=== PATIENT | female | born 1970 | race African-American/Black ===

== ENCOUNTER → 2021-01-11 16:51 | Outpatient (CLI) | payer BC, SELFPAY ==
--- NOTE | ~2021-01-11 | MM_ITS ---
EXAMINATION: MM screening adelaida BI w socorro HISTORY: Screening mammogram TECHNIQUE: Craniocaudal and mediolateral oblique 3-D tomosynthesis images were obtained and synthetic 2-D images were generated. CAD analysis was submitted and interpreted. COMPARISON: No prior mammogram is available for comparison at this institution. BREAST PARENCHYMAL COMPOSITION: The breasts are heterogeneously dense, which may obscure small masses . FINDINGS: RIGHT BREAST: There is an asymmetry in the anterior third of the outer breast 5 cm from the nipple on the craniocaudal view. LEFT BREAST: There is no evidence of suspicious mass, calcification, or architectural distortion to s uggest malignancy. IMPRESSION: 1. Right breast asymmetry which may represent the patient's baseline however no comparison is current ly available. 2. Comparison with prior mammograms is necessary. BI-RADS Category 0: Incomplete: Needs comparison with prior mammograms. Reviewed, dictated and finalized at location A. IMPRESSION: 1. Right breast asymmetry which may represent the patient's baseline however no comparison is currently available. 2. Comparison with prior mammograms is necessary. BI-RADS Category 0: Incomplete: Needs comparison with prior mammograms.
== END ==
PROVIDERS: PCP Internal Medicine; Visit Provider Internal Medicine
DX: Z12.31 Encounter for screening mammogram for malignant neoplasm of breast (principal); R92.8 Other abnormal and inconclusive findings on diagnostic imaging of breast
CPT/HCPCS: 77063; 77067

== ENCOUNTER 2022-03-25 15:04 | Outpatient (CLI) | payer BC, SELFPAY ==
--- NOTE | 2022-03-27 17:24 | P.PCNHOL_ITS ---
Holter/Event Monitor Holter/Event Monitor Date of procedure: 03/27/22 Holter/Event Procedure: 24 Hr Holter Monitor Diagnosis: Irregular heartbeat, bradycardia Indications: 52-year-old female with irregular heart beat and bradycardia Image/Tracing Quality: Good Finding: The patient was monitored for 24 hours. The underlying rhythm was sinus with a minimum heart rate of 51 beats per minute, average heart rate of 86 beats per minute and a maximum heart rate of 125 beats per minute. Frequent PVCs were seen with a PVC burden of 15.1%. There were 2 couplets but no sustained ventricular tachycardia. There were episodes of bigeminy and trigeminy. There were no APCs. There was no atrial fibrillation, pauses, or heart block. No diary was submitted. Conclusion: Holter monitor is remarkable for frequent PVCs with a 15% burden, and with periods of ventricular bigeminy and trigeminy.
== END 2022-03-25 15:05 | disposition home or self-care (01) ==
PROVIDERS: PCP Internal Medicine
DX: R00.1 Bradycardia, unspecified (principal)
CPT/HCPCS: 93225; 93226

== ENCOUNTER → 2022-04-08 16:46 | Outpatient (CLI) | payer BC, SELFPAY ==
--- NOTE | ~2022-04-08 | MM_ITS ---
EXAMINATION: MM screening adelaida BI w socorro HISTORY: Screening mammogram TECHNIQUE: Craniocaudal and mediolateral oblique 3-D tomosynthesis images were obtained and synthetic 2-D images were generated. CAD analysis was submitted and interpreted. COMPARISON: 01/11/2021, 02/09/2018, 04/28/2016 BREAST PARENCHYMAL COMPOSITION: The breasts are heterogeneously dense, which may obscure small masses . FINDINGS: RIGHT BREAST: There is a possible mass in the anterior/middle third upper breast. LEFT BREAST: No suspicious mass, calcification, or architectural distortion are identified to suggest malignancy. There has been no suspicious interval change. IMPRESSION: 1. Possible right breast mass 2. Additional mammographic views and possible breast ultrasound are recommended. BI-RADS Category 0: Incomplete: Needs additional imaging evaluation. Reviewed, dictated and finalized at location A. IMPRESSION: 1. Possible right breast mass 2. Additional mammographic views and possible breast ultrasound are recommended . BI-RADS Category 0: Incomplete: Needs additional imaging evaluation.
== END ==
PROVIDERS: PCP Internal Medicine; Visit Provider Internal Medicine
DX: Z12.31 Encounter for screening mammogram for malignant neoplasm of breast (principal); R92.8 Other abnormal and inconclusive findings on diagnostic imaging of breast
CPT/HCPCS: 77063; 77067

== ENCOUNTER 2025-02-06 13:16 | Emergency (ER) | payer BC, SELFPAY ==
[2025-02-06] VITALS (9 sets, daily range): BP systolic 139–199; BP diastolic 75–99; PULSE 80–90; RESP 11–16; TEMP 36.8; O2SAT 99–100
--- NOTE | ~2025-02-06 | XR_ITS ---
EXAMINATION: XR chest 2V 02/06/2025 14:00 INDICATION: Syncope PROCEDURE: 2 view chest COMPARISON: No prior studies for comparison. FINDINGS: The lungs are clear. The cardiomediastinal silhouette is within normal limits. There are no pleural effusions. There is no pneumothorax suspected. IMPRESSION: 1: NO ACUTE CARDIOPULMONARY DISEASE. Reviewed, dictated and finalized at location A.
--- NOTE | ~2025-02-06 | CT_ITS ---
EXAMINATION: CT facial bones wo con DATE: 02/06/2025 13:53 INDICATION: Syncope TECHNIQUE: Computed tomography (CT) of the facial bones was performed without intravenous contrast. T he dose-length product was 398.08 mGy-cm. Automated exposure control and iterative reconstruction ishan hnique were employed. COMPARISON: None FINDINGS: No acute maxillofacial fracture. Paranasal sinuses and mastoids are pneumatized. Temporal m andibular joints symmetric. No maxillary fracture. Rightward nasal septal deviation. IMPRESSION: 1. No acute abnormality of the facial bones. Reviewed, dictated and finalized at location A.
--- NOTE | ~2025-02-06 | CT_ITS ---
EXAMINATION: CT BRAIN W/O DATE: 02/06/2025 13:53 INDICATION: Syncope. Headache. TECHNIQUE: Computed tomography (CT) of the head was performed without intravenous contrast. The dose- length product was 605.33 mGy-cm. Automated exposure control and iterative reconstruction technique were employed. COMPARISON: No prior studies for comparison. FINDINGS: Normal brain parenchymal volume for age. Normal dawkins-white differentiation. No acute intrac ranial hemorrhage, infarction, mass or mass effect. There are chronic bilateral cerebellar infarction s. No ventriculomegaly or midline shift. Midline sagittal images demonstrate a normal corpus callosum, c raniovertebral junction and sella turcica. Basilar cisterns are patent. Paranasal sinuses and mastoids are pneumatized. No depressed skull fractures. IMPRESSION: 1. No acute intracranial abnormality. 2: Chronic bilateral cerebellar infarctions. Reviewed, dictated and finalized at location A.
--- OUTSIDE RECORDS SUMMARY | 2025-02-06 13:26 | XMS_ITS | Encounter Summary ---
Author Organization [facility] Address [address] [place] [address] Care Team Providers Care Fixed Wing Pilot Name Role Phone Chyna Moody MD Primary Care Provider [phone] Laura Ramirez Primary Care Provider [phone] Encounter Details Date Type Department Care Team (Latest Contact Info) Description 05/25/2021 Patron Technology Message Enc [facility] Medical Group Multispecialty Care - [place] [address] [address] [place], [place] [id number] Chyna Moody MD [address] [place] [address] [address] [place] [address] Due for DM follow up Social History Tobacco Use Types Packs/Day Years Used Date Smoking Tobacco: Never Smokeless Tobacco: Never Comments:counseled by Dr Beth pastor Alcohol Use Standard Drinks/Week Comments Yes 0 (1 standard drink = 0.6 oz pur e alcohol) rarely PHQ-2 Answer Date Recorded PHQ-2 Score - If the patient scores above 3, please move on to questions 3-9 0 05/24/2021 Comments No Sex and Gender Information Value Date Recorded Sex Assigned at Female 08/10/2024 4:51 PM SUPERVISOR MODERN LANGUAGES Legal Sex Female 4:08 PM CDT Gender Identity Not on file Sexual Orientation Not on file COVID-19 Exposure Response Date Recorded In the last month, have you been in contact with someone who was confirmed or suspected to have Coronavirus / COVID-19? No / Unsure 05/24/2021 4:54 AM SUPERVISOR MODERN [employer]ANGUAGES documented as of this encounter Plan of Treatment Upcoming Encounters Date Type Department Care Team (Late st Contact Info) Description 04/05/2025 10:30 AM CDT Telephone [facility] [place] [address] [place] [address] Aileen Curry PA [address] [facility] [address] [place] [address] 04/20/2025 3:[address] [facility] Non Invasive Cardiology ONE [facility] [address] Aileen Curry PA [address] [facility] [address] [place] [address] 05/04/2025 3:00 PM CDT Office Visit [facility] [address] [place] [address] Olegario Fowler MD Three [facility]. [facility] [address] [place] [address] Aileen Curry PA [address] [facility] [address] [place] [address] documented as of this encounter Visit Diagnoses Not on filedocumented in this encounter Additional Health Concerns Assessment Noted Time PHQ-9 Depression Total Score: 0 05/24/20 3:03 PM SUPERVISOR [employer]ANGU[employer] documented as of this encounter Care Teams Fixed Wing Pilot Relationship Specialty Start Date End Date Chyna Moody MD [address] [address] PCP - General INTERNAL MEDICINE 12/24/20 04/08/22 Laura Ramirez FNP [address] [place] [address] PCP - General NURSE PRACTITIONER 04/09/22 documented as of this encounter
--- OUTSIDE RECORDS SUMMARY | 2025-02-06 13:26 | XMS_ITS | Clinical Summary ---
Author Organization [facility] Address [address] [place] [address] Care Team Providers Care Nurse Name Role Phone Laura Diallo KAYLIE Primary Care Provider [phone] Allergies No known active allergies Medications amLODIPine (NORVASC) 2.5 MG tablet Take 1 tablet (2.5 mg total) by mouth daily. 10/04/2023 Active estradiol (ESTRACE) 1 MG tablet Take 1 tablet (1 mg total) by mouth daily. 04/04/2024 Active Active Problems Problem Noted Date Diagnosed Date Holter monitor, abnormal 04/23/2022 Hypertension associated with type 2 diabetes mellitus ([facility]) 12/24/2021 Overview (12/24/2021): On Losartan and stable. Hyperlipidemia associated wi th type 2 diabetes mellitus ([facility]) 06/21/2021 Overview (12/24/2021): On 40 mg daily of atorvastatin and tolerating without any side effects. Aim for LDL less than 100. Diabetes mellitus, type 2 ([facility]) 08/2017 Overview (12/24/2021): Currently controlled at 6.5% Farxiga and metformin. Vitamin D deficiency 03/29/2015 Resolved Problems Problem Noted Date Diagnosed Date Resolved Date Screen for colon cancer 05/28/202112/05 Overview (05/28/2021): Added automatically from request for surgery [id number] Family history of malignant neoplasm of colon 05/28/20 21 06/21/2021 Overview (05/28/2021): Added automatically from request for surgery [id number] Restless sleeper 12/24/2017 01/21/2021 Snores 12/24/2017 01/21/2021 Hypertension 09/26/2015 12/24/2021 Acid reflux 03/29/2015 01/21/2021 Hyperlipidemia 03/29/2015 06/21/2021 Encounter for preventive health examination 03/10/2013 12/31/2020 Family History Medical History Relation Comments Diabetes Brother Hypertension Brother Colon Cancer Father recently diagnos ed Diabetes Father Hypertension Father No Known Problems Maternal Aunt Dementia Maternal Grandmother lewy body d ementia at 92 Hypertension Mother Breast Cancer Paternal Aunt Diabetes Paternal Grandmother Hypertension Paternal Grandmother Relation Status Comments Brother Alive Father Alive Maternal Aunt Maternal Grandfather Maternal Grandmother Mother Alive Paternal Aunt Paternal Grandfather Paternal Grandmother Social History Tobacco Use Types Packs/Day Years Used Date Smoking Tobacco: Never Smokeless Tobacco: Never Tobacco Cessation:Counseling Given: Not Answered Comments:counseled by Dr Moody Alcohol Use Standard Drinks/Week Comments Not Currently 0 (1 standard drink = 0.6 oz pur e alcohol) rarely PHQ-2 Answer Date Recorded PHQ-2 Score - If the patient scores above 3, please move on to questions 3-9 0 05/24/2021 Comments No Sex and Gender Information Value Date Recorded Sex Assigned at Female 08/10/2024 4:51 PM DEPORTATION OFFICER Legal Sex Female 4:08 PM CDT Gender Identity Not on file Sexual Orientation Not on file Last Filed Vital Signs Vital Sign Reading Time Taken Comments Blood Pressure 142/98 04/28/2024 3:03 PM CDT Pulse 82 04/28/2024 3:03 PM CDT Temperature 36.6 C (97.8 F) 12/24/2021 1:59 PM CDT Respiratory Rate 18 12/24/2021 1:59 PM CDT Oxygen Saturation 98% 04/28/2024 3:03 PM CDT Inhaled Oxygen Concentration - - Weight 83.2 kg (183 lb 6.4 oz) 04/28/2024 3:03 P M CDT Height 157.5 cm (5' 2) 04/28/2024 3:03 PM CDT Body Mass Index 33.54 04/28/2024 3:03 PM CDT Plan of Treatment Upcoming Encounters Date Type Department Care Team (Late st Contact Info) Description 04/05/2025 10:30 AM CDT Telephone [facility], [facility] [address] [place] [address] Aileen Curry PA [address] [facility] [address] [place] [address] 04/20/2025 3:30 PM CDT Appointment [facility] Non Invasive Cardiology [place] [address] Aileen Curry PA 3 [facility] [address] [place] [address] 05/04/2025 3:00 PM CDT Office Visit [facility] THREE [facility], [facility] [address] [place] [address] Olegario Fowler MD Three [facility]. [facility] [address] [place] [address] Aileen Curry PA [address] [facility] [address] [place], [place] [address] Health Maintenance Due Date Last Done Comments Kidney Health Evaluation 1970 DTaP, Tdap and Td Vaccines (1 - Tdap) 1989 Hepatitis B Vaccines (1 of 3 - 19+ 3-dose series) 1989 Pneumococcal Vaccine: 50+ Years (1 of 2 - PCV) 1989 Zoster Vaccines (1 of 2) 02/15/2020 Hemoglobin A1C 06/25/2022 12/24/2021, 06/05, 12/24/2020, Additional history exists Annual Physical 12/24/2022 12/24/2021, 12/24/2020 Lipid Panel 12/24/2022 12/24/2021, 06/05, 12/24/2017, Additional history exists Diabetes: Retinopathy Eye Exam 10/03/2023 10/02/2021 COVID-19 Vaccine ( season) 2024 10/13/2020 Mammogram Screening 08/10/2026 08/10/2024, 08/08/2023, 06/13/2022, Additional history exists Colorectal Cancer Screening Colonoscopy (10 Years) 07/25/2031 07/25/2021, 07/25/2021 Hepatitis C Completed 12/24/2021 Meningococcal B Vaccine Aged Out No l onger eligible based on patient's age to complete this topic Meningococcal Vaccine Aged Out No emma kat eligible based on patient's age to complete this topic RSV Immunizations Under 20 Months Aged Out No longer eligible based on patient's age to complete this topic Procedures Procedure Name Priority Date/Time Associated Diagnosis Comments MG SCREENING W DANIELLA YAYA DIGI Routine 08/10/2024 5:12 PM DEPORTATION OFFICER Screening mammogram for breast cancer HEPATITIS C ANTIBODY Routine 12/24/2021 3:01 PM CDT Annual physical exam Routine general medical examination at a health care facility Encounter for hepatitis C screening test for low risk patient LIPID PANEL Routine 12/24/2021 3:01 PM CDT Annual physical exam Routine general medical examination at a health care facility Type 2 diabetes mellitus without complication, without long-term current use of insulin Hyperlipidemia associated with type 2 diabetes mellitus Hypertension associated with type 2 diabetes mellitus Class 1 obesity due to excess calories with serious comorbidity and body mass index (BMI) of 30.0 to 30.9 in adult HEMOGLOBIN, GLYCOSYLATED Routine 12/24/2021 Annual physical exam Routine general medical examination at a health care facility Type 2 diabetes mellitus without complication, without long-term current use of insulin Hypertension associated with type 2 diabetes mellitus Class 1 obesity due to excess calories with serious comorbidity and body mass index (BMI) of 30.0 to 30.9 in adult DIABETIC RETINOPATHY EXAM (NEGATIVE)(SCAN ORDER) Routine 10/02/2021 COLONOSCOPY Routine 07/25/2021 8:32 AM DEPORTATION OFFICER from Last 3 Months or Most Recently Relevant to Health Maintenance Results * MG SCREENING W DANIELLA YAYA DIGI (08/10/2024 5:12 PM DEPORTATION OFFICER) Anatomical Region Laterality Modality Breast Bilateral Mammography 08/11/2024 8:31 AM DEPORTATION OFFICER Impressions 08/11/2024 8:42 AM DEPORTATION OFFICER ===== IMPRESSION: ===== 1. Stable mammographic appearance with no new findings to suggest malignancy in either breast. Assessment: ACR BI-RADS 2 - BENIGN FINDING(S) Recommendation: 1:Routine Screening Bilateral Comments: Ordered By: LAURA DIALLO Interpreted By: Olinda Marques, 08/11/2024 8:31 AM Narrative 08/11/2024 8:42 AM DEPORTATION OFFICER [address] [address] EXAMINATION: Digital bilateral screening mammogram with 3-D tomosynthesis EXAM DATE/TIME: 08/10/2024 4:58 PM REASON FOR EXAM: Routine screening Breast carcinoma and paternal aunt at age 63 COMPARISON: 08/08/2023. 04/08/2022 Technique: Digital screening mammography of both breasts was performed in addition to 3-D Tomosynthesis technique. This study was read with the assistance of a computer-aided detection system. Tissue density: The breasts are heterogeneously dense, which may obscure small masses. Findings: There is no new focal asymmetry, dominant mass lesion, area of skin thickening, or cluster of suspicious appearing calcifications in either breast to suggest malignancy. Laura Diallo REAL ESTATE LEASING MANAGER MAMMO Final Result * (ABNORMAL) LIPID PANEL (12/24/2021 3:01 PM CDT) Pathologist [facility] CHOLESTEROL 270(H) <200 MG/DL 12/24/2021 10:28 PM CDT [facility] TRIGLYCERIDES 176(H) <150 MG/DL 12/24/2021 10:28 PM CDT [facility] HDL 81 >40 MG/DL 12/24/2021 10:28 PM CDT [facility] LDL-C 154(H) <100 MG/DL 12/24/2021 10:28 PM CDT [facility] VLDL CALCULATION 35(H) 5 - 28 MG/DL 12/24/2021 10:28 PM CDT [facility] CHOL/HDL RATIO 3.3 0.0 - 4.0 12/24/2021 10:28 PM CDT [facility] LDL/HDL 1.9 0.41 - 2.13 12/24/2021 10:28 PM CDT [facility] NON HDL CHOLESTEROL 189(H) <140 MG/DL 12/24/2021 10:28 PM CDT [facility] 12/24/2021 3:01 PM CDT Chyna Moody MD LABORATORY Final Result [facility] [address] [place] [address], * HEPATITIS C ANTIBODY (12/24/2021 3:01 PM CDT) Pathologist [facility] HEPATITIS C AB NON-REACTI VE NON-REACT [place] 12/25/2021 6:18 PM CDT [facility] Comment: ANTIBODIES TO HCV NOT DETECTED. DOES NOT EXCLUDE THE POSSIBILITY OF EXPOSURE TO HCV. 12/24/2021 3:01 PM CDT Chyna Moody MD LABORATORY Final Result [facility] [address] [place] [address], [place] [phone] [id number] * A1C (BACK OFFICE) (12/24/2021) HGB A1C 6.5 % [address], [place] 12/24/2021 Chyna Moody MD LABORATORY Final Result [address] [place] [address] [place] [address], [place] [phone] * DIABETIC RETINOPATHY EXAM (NEGATIVE)(SCAN) (10/02/2021) us Documents Scanned SCANNING Final Result [facility] ON[facility] from Last 3 Months or Most Recently Relevant to Health Maintenance Insurance [facility] Care Teams Nurse Relationship Specialty Start Date End Date Laura Diallo FNP [address] [place] [address] PCP - General NURSE PRACTITIONER 04/09/22
--- OUTSIDE RECORDS SUMMARY | 2025-02-06 13:26 | XMS_ITS | Encounter Summary ---
Author Organization [facility] Address [address] [place] [address] Care Team Providers Care School Psychology Professor Name Role Phone Chyna Moody MD Primary Care Provider [phone] Laura Ramirze Primary Care Provider [phone] Encounter Details Date Type Department Care Team (Late Contact Info) Description 12/25/2021 orderbolt Message Enc [facility] Medical Group Multispecialty Care - [address] [place], [place] [id number] Ema[place], [facility] Provider lab results Social History Tobacco Use Types Packs/Day Years [...] Sex Assigned at Female 08/10/2024 4:51 PM SALON LEADER Legal Sex Female 4:08 PM CDT Gender Identity Not on file Sexual Orientation Not on file COVID-19 Exposure Response Date Recorded In the last 10 days, have yo u been in contact with someone who was confirmed or suspected to have Coronavirus/COVID-19? No / Unsure 12/24/2021 4:46 AM CDT documented as of this encounter Plan of Treatment Upcoming Encounters Date Type Department Care Team (Late Contact Info) Description 04/05/2025 10:30 AM CDT Telephone [place] [facility] THREE [facility], [place] [address] [place] [address] Aileen Curry PA 3 [facility] [address] [place] [address] 04/20/2025 3:30 PM CDT Appointment [facility] Non Invasive Cardiology ONE [facility] [place] [address] Aileen Curry PA 3 [facility] [address] [place] [address] 05/04/2025 3:00 PM CDT Office Visit [place] [facility] THREE [facility], [facility] [address] [place] [address] Olegario Fowler MD Three [facility]. [place] [address] [place] [address] Aileen Curry PA 3 [facility] [address] [place] [address] documented as of this encounter Visit Diagnoses Not on filedocumented in this encounter Additional Health Concerns Assessment Noted Time PHQ-9 Depression Total Score: 0 05/24/20 3:03 PM SALON LEADER documented as of this encounter Care Teams School Psychology Professor Relationship Specialty Start Date End Date Chyna Moody MD [address] [address] PCP - General INTERNAL MEDICINE 12/24/20 04/08/22 Laura Ramirez FNP [address] [place] [address] PCP - General NURSE PRACTITIONER 04/09/22 documented as of this encounter
--- OUTSIDE RECORDS SUMMARY | 2025-02-06 13:26 | XMS_ITS | Encounter Summary ---
Author Organization [facility] Address [address] [place] [address] Care Team Providers Care Food Beverage Server Name Role Phone Laura Ramirez SUPERVISOR HY[employer]OCHLORIC AREA Primary Care Provider [phone] Encounter Details Date Type Department Care Team (Late st Contact Info) Description 10/19/2024 GetThis Message Enc [place] [facility] THREE [facility], [facility] [address] [place], [place] [id number] Olegario Fowler MD Three [facility]. [facility] [address] [place], [place] [id number] Severe dizziness with nausea Social History Tobacco Use Types Packs/Day Years Used Date Smoking Tobacco: Never Smokeless Tobacco: Never Comments:counseled by Dr Beth pastor Alcohol Use Standard Drinks/Week Comments Not Currently 0 (1 standard drink = 0.6 oz pur e alcohol) rarely PHQ-2 Answer Date Recorded PHQ-2 Score - If the patient scores above 3, please move on to questions 3-9 0 05/24/2021 Comments No Sex and Gender Information Value Date Recorded Sex Assigned at Female 08/10/2024 4:51 PM HOT WORT SETTLER Legal Sex Female 4:08 PM CDT Gender Identity Not on file Sexual Orientation Not on file documented as of this encounter Progress Notes * HUMBERTO Ragsdale - 10/19/2024 2:52 PM CDT She should start by making sure she is hydrated and avoid very hot showers. These can cause vasodilation of the blood vessels and lower BP causing dizziness. documented in this encounter Plan of Treatment Upcoming Encounters Date Type Department Care Team (Late st Contact Info) Description 04/05/2025 10:30 AM CDT Telephone [facility] THREE [facility], [facility] [address] [place] [address] Aileen Curry PA 3 [facility] [address] [place] [address] 04/20/2025 3:30 PM CDT Appointment [facility] Non Invasive Cardiology ONE [facility] [place] [place] [address] Aileen Curry PA 3 [facility] [address] [place] [address] 05/04/2025 3:00 PM CDT Office Visit [facility] THREE [facility], [facility] [address] [place] [address] Olegario Fowler MD Three [facility]. [facility] [address] [place] [address] Aileen Curry PA 3 [facility] [address] [place], [place] [address] documented as of this encounter Visit Diagnoses Not on filedocumented in this encounter Additional Health Concerns Assessment Noted Time PHQ-9 Depression Total Score: 0 05/24/20 21 3:03 PM HOT WORT SETTLER documented as of this encounter Care Teams Food Beverage Server Relationship Specialty Start Date End Date Laura Ramirez FNP [address] [place] [address] PCP - General NURSE PRACTITIONER 04/09/22 documented as of this encounter
--- NOTE | 2025-02-06 13:35 | ECG_ITS ---
Test Date: 2025-02-06 16:00:12 Measurements Intervals [place] Rate: 90 P: 57 [place]: 148 QRS: 39 QRSD: 81 T: 29 QT: 373 QTc: 458 Interpretive Statements SINUS RHYTHM WITH FREQUENT VENTRICULAR PREMATURE COMPLEXES IN A BIGEMINAL PATTERN BASELINE ARTIFACT- I, II, AVR ABNORMAL ECG No previous ECG available for comparison Electronically Signed On 02-06-2025 16:49:23 CDT by Landen Daniels D.O.
--- NOTE | 2025-02-06 14:10 | ED_ITS ---
HPI - Syncope General Chief Complaint: Syncope <Everett Esquivel APRN - Last Filed: 02/06/25 14:12> Stated Complaint: syncope <Everett Esquivel APRN - Last Filed: 02/06/25 14:12> Time Seen by Provider: 02/06/25 15:10 <Everett Esquivel APRN - Last Filed: 02/06/25 14:12> 54-year-old female presents to the ER via EMS complaining of syncopal episode. Patient started she started to feel extremely dizzy at work and had a syncopal episode. Patient was trying to get herself to the ground however she did not make it to the ground before she lost consciousness. Patient reports having bruising to left side of her face and is having a headache. Patient has a history of heart arrhythmia and has passed out before. Patient denies any vision changes, current dizziness, chest pains, difficulty breathing, nausea vomiting, diarrhea, or any other symptoms. Focused HPI: GENERAL: Well-appearing, well-nourished, and in no acute distress. HEAD: Normocephalic, atraumatic. Bruising to the left lateral upper orbit. Mild bruising the left maxilla. No obvious deformity or swelling. EYE: Extraocular movements intact. Pupils PERRLA. Conjunctiva normal. Sclera white and clear. CHEST: Clear to auscultation. ?No respiratory distress. HEART: Regular rate and rhythm.? NEURO: ?Alert and oriented x3. Patient screened in triage and initial orders placed.? ?Additional care and disposition to be based upon?diagnostic testing and treatment. <Everett Esquivel APRN - Last Filed: 02/06/25 14:12> History of Present Illness HPI narrative: Agree with HPI <Noble Mancia MD - Last Filed: 02/06/25 18:14> Related Data Allergies/Adverse Reactions: Allergies Allergy/AdvReac Type Severity Reaction Status Date / Time No Known Allergies Allergy Verified 02/06/25 16:39 <Everett Esquivel APRN - Last Filed: 02/06/25 14:12> Review of Systems 2 Review of Systems: All systems reviewed & are unremarkable except as noted in HPI and below <Noble Mancia MD - Last Filed: 02/06/25 18:14> Constitutional: Constitutional: Reports no additional constitutional complaints <Noble Mancia MD - Last Filed: 02/06/25 18:14> ENT: Reports system reviewed and no additional complaints, except as documented <Noble Mancia MD - Last Filed: 02/06/25 18:14> Cardiovascular: Cardiovascular: Reports no additional cardiovascular complaints <Noble Manica MD - Last Filed: 02/06/25 18:14> Respiratory: Respiratory: Reports no additional respiratory complaints < Noble Mancia MD - Last Filed: 02/06/25 18:14> Neurologic: Reports system reviewed and no additional complaints, except as documented <Noble Mancia MD - Last Filed: 02/06/25 18:14> PMFSH Past Medical History Medical History: Medical History (Updated 02/06/25 @ 18:14 by Noble Mancia MD) Hypertension Frequent PVCs <Everett Esquivel APRN - Last Filed: 02/06/25 14:12> Surgical History Surgical History: Surgical History (Updated 02/06/25 @ 18:12 by Noble Mancia MD) No pertinent past surgical history <Everett Esquivel APRN - Last Filed: 02/06/25 14:12> Exam 2 Narrative: GENERAL: Well-appearing, well-nourished, and in no acute distress. HEAD: Normocephalic, atraumatic. EYES: PERRL and EOMI. Contusion left upper and lower lid. ENT: Mucous membranes moist. CHEST: Clear to auscultation. No respiratory distress. HEART: Regular rate and rhythm. Normal peripheral pulses. ABDOMEN: Soft, nontender, nondistended. EXTREMITIES: Normal range of motion. No edema. SKIN: Warm, dry, no rash. Abrasions left cheek. NEURO: Alert and oriented x3. PSYCH: Normal mood and affect. <Noble Mancia MD - Last Filed: 02/06/25 18:14> Course Course Emergency Course: Patient resting comfortably. Blood pressure improved. Received home Norvasc that she missed. Alysa the discharge home. <Noble Mancia MD - Last Filed: 02/06/25 18:14> Vital Signs Vital signs: Vital Signs Temperature 98.2 F 02/06/25 13:24 Pulse Rate 83 02/06/25 13:24 Respiratory Rate 16 02/06/25 13:24 Blood Pressure 143/87 H 02/06/25 13:24 Pulse Oximetry 99 02/06/25 13:24 Oxygen Delivery Room Air 02/06/25 13:24 Temperature 98.2 F 02/06/25 13:24 Pulse Rate 82 02/06/25 17:40 Respiratory Rate 16 02/06/25 17:40 Blood Pressure 153/75 H 02/06/25 17:40 Pulse Oximetry 100 02/06/25 17:40 Oxygen Delivery Room Air 02/06/25 13:24 <Everett Esquivel APRN - Last Filed: 02/06/25 14:12> Vital Signs Temperature 98.2 F 02/06/25 13:24 Pulse Rate 83 02/06/25 13:24 Respiratory Rate 16 02/06/25 13:24 Blood Pressure 143/87 H 02/06/25 13:24 Pulse Oximetry 99 02/06/25 13:24 Oxygen Delivery Room Air 02/06/25 13:24 Temperature 98.2 F 02/06/25 13:24 Pulse Rate 82 02/06/25 17:40 Respiratory Rate 16 02/06/25 17:40 Blood Pressure 153/75 H 02/06/25 17:40 Pulse Oximetry 100 02/06/25 17:40 Oxygen Delivery Room Air 02/06/25 13:24 <Noble Mancia MD - Last Filed: 02/06/25 18:14> MDM - Syncope Lab Data Result diagrams: 02/06/25 15:32 02/06/25 15:32 <Everett Esquivel APRN - Last Filed: 02/06/25 14:12> Labs: Lab Results 02/06/25 Range/Units 15:32 WBC 6.0 (4.5-10.0) K/mm3 RBC 4.92 (4.2-5.4) M/mm3 Hgb 13.4 (12.0-15.0) g/dL Hct 40.5 (37.0-47.0) % MCV 82.3 (80-100) fl MCH 27.2 (26-34) pg MCHC 33.1 (32-36) g/dl RDW 14.0 (11.5-14.5) % Plt Count 232 (150-375) k/mm3 MPV 10.6 H (7.4-10.4) fl Immature Gran % (Auto) 0.3 (0-0.5) % Neut % (Auto) 75.2 H (45.5-73.1) % Lymph % (Auto) 17.9 L (18.3-44.2) % [place] % (Auto) 6.1 (2.6-8.5) % Eos % (Auto) 0.3 (0-4.4) % Baso % (Auto) 0.2 (0.2-1.2) % Lymph # (Auto) 1.08 (0.9-3.2) K/mm3 [place] # (Auto) 0.4 (0.1-0.6) K/mm3 Eos # (Auto) 0.0 (0-0.3) K/mm3 Baso # (Auto) 0.0 (0.0-0.1) K/mm3 Abs Immat Gran (auto) 0.02 (0.00-0.031) K/mm3 Absolute Neuts (auto) 4.5 (1.3-6.7) K/mm3 Absolute Nucleated RBC 0.000 (0.0-0.012) K/mm3 Nucleated RBC % 0.0 (0.0-0.2) % Sodium 131 L (137-145) mmol/L Potassium 4.4 (3.4-5.0) mmol/L Chloride 102 (98-107) mmol/L Carbon Dioxide 22 (22-30) mmol/L Anion Gap 7 (4-12) mmol/L BUN 12 (7-17) mg/dL Creatinine 0.71 (0.7-1.0) mg/dL Estim Creat Clear Calc 77 ml/min Estimated GFR > 60 (59 - ) Glucose 223 H (65-110) mg/dL Calcium 9.5 (8.4-10.2) mg/dL Total Bilirubin 0.6 (0.2-1.3) mg/dL AST 28 (14-36) U/L ALT 29 (6-35) U/L Alkaline Phosphatase 105 (38-126) U/L Total Protein 8.2 (6.3-8.2) g/dL Albumin 4.4 (3.5-5.1) g/dL <Everett Esquivel, NECKTIE MAKER - Last Filed: 02/06/25 14:12> Lab Results 02/06/25 Range/Units 15:32 WBC 6.0 (4.5-10.0) K/mm3 RBC 4.92 (4.2-5.4) M/mm3 Hgb 13.4 (12.0-15.0) g/dL Hct 40.5 (37.0-47.0) % MCV 82.3 (80-100) fl MCH 27.2 (26-34) pg MCHC 33.1 (32-36) g/dl RDW 14.0 (11.5-14.5) % Plt Count 232 (150-375) k/mm3 MPV 10.6 H (7.4-10.4) fl Immature Gran % (Auto) 0.3 (0-0.5) % Neut % (Auto) 75.2 H (45.5-73.1) % Lymph % (Auto) 17.9 L (18.3-44.2) % [place] % (Auto) 6.1 (2.6-8.5) % Eos % (Auto) 0.3 (0-4.4) % Baso % (Auto) 0.2 (0.2-1.2) % Lymph # (Auto) 1.08 (0.9-3.2) K/mm3 [place] # (Auto) 0.4 (0.1-0.6) K/mm3 Eos # (Auto) 0.0 (0-0.3) K/mm3 Baso # (Auto) 0.0 (0.0-0.1) K/mm3 Abs Immat Gran (auto) 0.02 (0.00-0.031) K/mm3 Absolute Neuts (auto) 4.5 (1.3-6.7) K/mm3 Absolute Nucleated RBC 0.000 (0.0-0.012) K/mm3 Nucleated RBC % 0.0 (0.0-0.2) % Sodium 131 L (137-145) mmol/L Potassium 4.4 (3.4-5.0) mmol/L Chloride 102 (98-107) mmol/L Carbon Dioxide 22 (22-30) mmol/L Anion Gap 7 (4-12) mmol/L BUN 12 (7-17) mg/dL Creatinine 0.71 (0.7-1.0) mg/dL Estim Creat Clear Calc 77 ml/min Estimated GFR > 60 (59 - ) Glucose 223 H (65-110) mg/dL Calcium 9.5 (8.4-10.2) mg/dL Total Bilirubin 0.6 (0.2-1.3) mg/dL AST 28 (14-36) U/L ALT 29 (6-35) U/L Alkaline Phosphatase 105 (38-126) U/L Total Protein 8.2 (6.3-8.2) g/dL Albumin 4.4 (3.5-5.1) g/dL <Noble Mancia MD - Last Filed: 02/06/25 18:14> Imaging Data Radiologist's impression: ITS Impressions Chest X-Ray 02/06/25 14:00 IMPRESSION: 1: NO ACUTE CARDIOPULMONARY DISEASE. Head CT 02/06/25 14:03 IMPRESSION: 1. No acute intracranial abnormality. 2: Chronic bilateral cerebellar infarctions. Face CT 02/06/25 14:06 IMPRESSION: 1. No acute abnormality of the facial bones. <Noble Manica MD - Last Filed: 02/06/25 18:14> ECG Data EKG #1: ECG completion date: 02/06/25 <Noble Mancia MD - Last Filed: 02/06/25 18:14> ECG completion time: 16:00 <Noble Mancia MD - Last Filed: 02/06/25 18:14> EKG Interpretation: normal rate (90), sinus rhythm, PVCs and normal QRS <Noble Mancia MD - Last Filed: 02/06/25 18:14> Discharge Plan Discharge Clinical Impression: Vasovagal syncope <Everett Esquivel APRN - Last Filed: 02/06/25 14:12> Patient Disposition: Home <Everett Esquivel APRN - Last Filed: 02/06/25 14:12> Condition: Stable <Everett Esquivel APRN - Last Filed: 02/06/25 14:12> Instructions: Syncope (ED) <Everett Esquivel APRN - Last Filed: 02/06/25 14:12> Additional Instructions: Please return to the emergency department if you develop severe and persistent chest pain, difficulty breathing, dizziness, leg swelling or if you are coughing up blood as these can be signs of a medical emergency. Please call your doctor for a follow up appointment to determine the need for further testing. <Everett Esquivel APRN - Last Filed: 02/06/25 14:12> Patient Language: Norwegian <Everett Esquivel APRN - Last Filed: 02/06/25 14:12> Follow-up/Referrals: James,Laura Parmar APRN [Primary Care Provider] - 1 Week <Everett Esquivel APRN - Last Filed: 02/06/25 14:12>
--- OUTSIDE RECORDS SUMMARY | 2025-02-06 14:13 | XMS_ITS | Clinical Summary ---
Author Organization [facility] Address [address] [place] [address] Care Team Providers Care Train Brake Operator Name Role Phone Laura Diallo KAYLIE Primary Care Provider [phone] Allergies No known active allergies Medications amLODIPine (NORVASC) 2.5 MG tablet Take 1 tablet (2.5 mg total) by mouth daily. 10/04/2023 Active estradiol (ESTRACE) 1 MG tablet Take 1 tablet (1 mg total) by mouth daily. 04/04/2024 Active Active Problems Problem Noted Date Diagnosed Date Holter monitor, abnormal 04/23/2022 Hypertension associated with type 2 diabetes mellitus ([facility]) 12/24/2021 Overview (12/24/2021): On Losartan and stable. Hyperlipidemia associated wi th type 2 diabetes mellitus ([facility]) 06/21/2021 Overview (12/24/2021): On 40 mg daily of atorvastatin and tolerating without any side effects. Aim for LDL less than 100. Diabetes mellitus, type 2 ([facility]) 08/2017 Overview (12/24/2021): Currently controlled at 6.5% Farxiga and metformin. Vitamin D deficiency 03/29/2015 Resolved Problems Problem Noted Date Diagnosed Date Resolved Date Screen for colon cancer 05/28/202112/05 Overview (05/28/2021): Added automatically from request for surgery [id number] Family history of malignant neoplasm of colon 05/28/20 21 06/21/2021 Overview (05/28/2021): Added automatically from request for surgery [id number] Restless sleeper 12/24/2017 01/21/2021 Snores 12/24/2017 01/21/2021 [...] Sex Assigned at Female 08/10/2024 4:51 PM SENIOR ADMINISTRATIVE ASSOCIATE Legal Sex Female 4:08 PM CDT Gender [...] AM CDT Telephone [facility], [facility] [address] [place] [address] Aileen Curry PA 3 [facility] [address] [place] [address] 04/20/2025 3:30 PM CDT Appointment [facility] Non Invasive Cardiology [facility] [address] Aileen Curry PA 3 [facility] [address] [place] [address] 05/04/2025 3:00 PM CDT Office Visit [facility], [facility] [address] [place] [address] Olegario Fowler MD Three [facility]. [facility] [address] [place] [address] Aileen Curry PA 3 [facility] [address] [place], [place] [address] Health Maintenance Due Date Last Done Comments [...] DANIELLA YAYA DIGI Routine 08/10/2024 5:12 PM SENIOR ADMINISTRATIVE ASSOCIATE Screening mammogram for breast cancer HEPATITIS C [...] Routine 10/02/2021 COLONOSCOPY Routine 07/25/2021 8:32 AM SENIOR ADMINISTRATIVE ASSOCIATE from Last 3 Months or Most Recently Relevant to Health Maintenance Results * MG SCREENING W DANIELLA YAYA DIGI (08/10/2024 5:12 PM SENIOR ADMINISTRATIVE ASSOCIATE) Anatomical Region Laterality Modality Breast Bilateral Mammography 08/11/2024 8:31 AM SENIOR ADMINISTRATIVE ASSOCIATE Impressions 08/11/2024 8:42 AM SENIOR ADMINISTRATIVE ASSOCIATE ===== IMPRESSION: ===== 1. Stable mammographic appearance with no new findings to suggest malignancy in either breast. Assessment: ACR BI-RADS 2 - BENIGN FINDING(S) Recommendation: 1:Routine Screening Bilateral Comments: Ordered By: LAURA DIALLO Interpreted By: Olinda Marques, 08/11/2024 8:31 AM Narrative 08/11/2024 8:42 AM SENIOR ADMINISTRATIVE ASSOCIATE [address] [address] EXAMINATION: Digital bilateral screening mammogram [...] either breast to suggest malignancy. Laura Diallo DETAIL ASSEMBLER MAMMO Final Result * (ABNORMAL) LIPID PANEL (12/24/2021 3:01 PM CDT) Pathologist [facility] CHOLESTEROL 270(H) <200 MG/DL 12/24/2021 10:28 PM CDT [facility] TRIGLYCERIDES 176(H) <150 MG/DL 12/24/2021 10:28 PM CDT [facility] HDL 81 >40 MG/DL 12/24/2021 10:28 PM CDT [facility] LDL-C 154(H) <100 MG/DL 12/24/2021 10:28 PM CDT [facility] VLDL CALCULATION 35(H) 5 - 28 MG/DL 12/24/2021 10:28 PM CDT [facility] CHOL/HDL RATIO 3.3 0.0 - 4.0 12/24/2021 10:28 PM CDT [facility] LDL/HDL 1.9 0.41 - 2.13 12/24/2021 10:28 PM CDT [facility] NON HDL CHOLESTEROL 189(H) <140 MG/DL 12/24/2021 10:28 PM CDT [facility] 12/24/2021 3:01 PM CDT Chyna Moody MD LABORATORY Final Result [facility] [address] [place] [address], * HEPATITIS C ANTIBODY (12/24/2021 3:01 PM CDT) Pathologist [facility] HEPATITIS C AB NON-REACTI VE NON-REACT [place] 12/25/2021 6:18 PM CDT [facility] Comment: ANTIBODIES TO HCV NOT DETECTED. DOES NOT EXCLUDE THE POSSIBILITY OF EXPOSURE TO HCV. 12/24/2021 3:01 PM CDT Chyna Moody MD LABORATORY Final Result [facility] [address] [place] [address], [place] [phone] [id number] * A1C (BACK OFFICE) (12/24/2021) HGB A1C 6.5 % [address], [place] 12/24/2021 Chyna Moody MD LABORATORY Final Result [address], [place] [address] [place] [address], [place] [phone] * DIABETIC RETINOPATHY EXAM (NEGATIVE)(SCAN) (10/02/2021) us Documents Scanned SCANNING Final Result [facility] ONBASE from Last 3 Months or Most Recently Relevant to Health Maintenance Insurance [facility] Care Teams Train Brake Operator Relationship Specialty Start Date End Date Laura Diallo FNP [address] [place] [address] PCP - General NURSE PRACTITIONER 04/09/22
--- OUTSIDE RECORDS SUMMARY | 2025-02-06 14:13 | XMS_ITS | Encounter Summary ---
Author Organization [facility] Address [address] [place] [address] Care Team Providers Care Roofing Apprentice Name Role Phone Chyna Moody MD Primary Care Provider [phone] Laura Ramirez Primary Care Provider [phone] Encounter Details Date Type Department Care Team (Latest Contact Info) Description 05/25/2021 ChoreMonster Message Enc [facility] Medical Group Multispecialty Care - [address] [address] [address] [place], [place] [id number] Chyna Moody MD [address] [place] [address] [address] [place] [address] Due for DM follow up [...] Sex Assigned at Female 08/10/2024 4:51 PM CARGO BRACER Legal Sex Female 4:08 PM CDT Gender Identity Not on file Sexual Orientation Not on file COVID-19 Exposure Response Date Recorded In the last month, have you been in contact with someone who was confirmed or suspected to have Coronavirus / COVID-19? No / Unsure 05/24/2021 4:54 AM CARGO BRACER documented as of this encounter Plan of Treatment Upcoming Encounters Date Type Department Care Team (Late st Contact Info) Description 04/05/2025 10:30 AM CDT Telephone [facility] [place] [address] [place] [address] Aileen Curry PA 3 [facility] [address] [place] [address] 04/20/2025 3:30 PM CDT Appointment [facility] Non Invasive Cardiology ONE [facility] [place] [address] Aileen Curry PA 3 [facility] [address] [place] [address] 05/04/2025 3:00 PM CDT Office Visit [facility] [address] [place] [address] Olegario Fowler MD Three [facility]. [email or web address] [address] [place] [address] Aileen Curry PA 3 [facility] [address] [place] [address] documented as of this encounter Visit Diagnoses Not on filedocumented in this encounter Additional Health Concerns Assessment Noted Time PHQ-9 Depression Total Score: 0 05/24/20 3:03 PM CARGO BRACER documented as of this encounter Care Teams Roofing Apprentice Relationship Specialty Start Date End Date Chyna Moody MD [address] [address] PCP - General INTERNAL MEDICINE 12/24/20 04/08/22 Laura Ramirez FNP [address] [place] [address] PCP - General NURSE PRACTITIONER 04/09/22 documented as of this encounter
--- OUTSIDE RECORDS SUMMARY | 2025-02-06 14:13 | XMS_ITS | Encounter Summary ---
Author Organization [facility] Address [address] [place] [address] Care Team Providers Care Precision Aircraft Structure Assembler Name Role Phone Chyna Moody MD Primary Care Provider [phone] Laura Ramirez Primary Care Provider [phone] Encounter Details Date Type Department Care Team (Late Contact Info) Description 12/25/2021 OpenSpace Message Enc [facility] Medical Group Multispecialty Care - [address] [place], [place] [id number] [employer], [facility] Provider lab results Social History Tobacco Use [...] Sex Assigned at Female 08/10/2024 4:51 PM TRAINING OFFICER Legal Sex Female 4:08 PM CDT [...] Info) Description 04/05/2025 10:30 AM CDT Telephone [facility], [place] [address] [place] [address] Aileen Curry PA 3 [facility] [address] [place] [address] 04/20/2025 3:30 PM CDT Appointment [facility] Non Invasive Cardiology ONE [facility] [place] [address] Aileen Curry PA 3 [facility] [address] [place] [address] 05/04/2025 3:00 PM CDT Office Visit [facility], [facility] [address] [place] [address] Olegario Fowler MD [address] [facility]. [place] [address] [place] [address] Aileen Curry PA 3 [facility] [address] [place] [address] documented as of this encounter Visit Diagnoses Not on filedocumented in this encounter Additional Health Concerns Assessment Noted Time PHQ-9 Depression Total Score: 0 05/24/20 3:03 PM TRAINING OFFICER documented as of this encounter Care Teams Precision Aircraft Structure Assembler Relationship Specialty Start Date End Date Chyna Moody MD [address] [address] PCP - General INTERNAL MEDICINE 12/24/20 04/08/22 Laura Ramirez FNP [address] [place] [address] PCP - General NURSE PRACTITIONER 04/09/22 documented as of this encounter
--- OUTSIDE RECORDS SUMMARY | 2025-02-06 14:13 | XMS_ITS | Encounter Summary ---
Author Organization [facility] Address [address] [place] [address] Care Team Providers Care It Support Consultant Name Role Phone Laura Ramirez CARDIOLOGY TECH Primary Care Provider [phone] Encounter Details Date Type Department Care Team (Late st Contact Info) Description 10/19/2024 DTVCast Message Enc [facility], [facility] [address] [place], [place] [phone] Olegario Fowler MD Three [facility]. [facility] [address] [place], [place] [id number] Severe dizziness with nausea Social History Tobacco [...] Sex Assigned at Female 08/10/2024 4:51 PM TRESTLE MAINTERNANCE LABORER Legal Sex Female 4:08 PM CDT Gender [...] AM CDT Telephone [facility], [facility] [address] [place] [address] Aileen Curry PA 3 [facility] [address] [place] [address] 04/20/2025 3:[address] [facility] Non Invasive Cardiology ONE [facility] [place] [address] Aileen Curry PA 3 [facility] [address] [place] [address] 05/04/2025 3:00 PM CDT Office Visit [facility], [facility] [address] [place] [address] Olegario Fowler MD Three [facility]. [facility] [address] [place] [address] Aileen Curry PA 3 [facility] [address] [place], [place] [address] documented as of this encounter Visit Diagnoses Not on filedocumented in this encounter Additional Health Concerns Assessment Noted Time PHQ-9 Depression Total Score: 0 05/24/20 21 3:03 PM TRESTLE MAINTERNANCE LABORER documented as of this encounter Care Teams It Support Consultant Relationship Specialty Start Date End Date Laura Ramirez FNP [address] [place] [address] PCP - General NURSE PRACTITIONER 04/09/22 documented as of this encounter
[2025-02-06 15:42] LABS: Hematocrit 40.5 % (37.0-47.0); Hemoglobin 13.4 g/dL (12.0-15.0); Immature Granulocyte Percent A 0.3 % (0-0.5); Lymphocytes Absolute Auto 1.08 K/mm3 (0.9-3.2); Mean Corpuscular HGB Conc 33.1 g/dl (32-36); Mean Corpuscular Hemoglobin 27.2 pg (26-34); Mean Corpuscular Volume 82.3 fl (80-100); Nucleated Red Blood Cells Absolute Auto 0.000 K/mm3 (0.0-0.012); Nucleated Red Blood Cells Perc 0.0 % (0.0-0.2); Platelet Count Result 232 k/mm3 (150-375); Red Blood Count 4.92 M/mm3 (4.2-5.4); White Blood Count 6.0 K/mm3 (4.5-10.0)
[2025-02-06 15:48] LABS: Alanine Aminotransferase 29 U/L (6-35); Albumin Level 4.4 g/dL (3.5-5.1); Alkaline Phosphatase 105 U/L (38-126); Anion Gap 7 mmol/L (4-12); Aspartate Amino Transferase 28 U/L (14-36); Bilirubin,Total 0.6 mg/dL (0.2-1.3); Blood Urea Nitrogen 12 mg/dL (7-17); Calcium 9.5 mg/dL (8.4-10.2); Carbon Dioxide 22 mmol/L (22-30); Chloride 102 mmol/L (98-107); Estimated CRCL calculation 77 ml/min; Estimated Glomerular Filt Rate > 60; Glucose 223 mg/dL (65-110); Potassium 4.4 mmol/L (3.4-5.0); Sodium 131 mmol/L (137-145); Total Protein 8.2 g/dL (6.3-8.2)
== END 2025-02-06 18:20 | disposition home or self-care (01) ==
PROVIDERS: Emergency Provider Emergency Medicine; PCP Nurse Practitioner
DX: R55 Syncope and collapse (principal); I10 Essential (primary) hypertension; R93.0 Abnormal findings on diagnostic imaging of skull and head, not elsewhere classified
CPT/HCPCS: 36415; 70450; 70486; 71046; 80053; 85025; 93005; 99284; A9270